=== PATIENT | female | born 1985 ===

== ENCOUNTER 2020-01-05 00:12 | Inpatient (IN) | payer OTHER ==
[2020-01-05] MEDS ORDERED: TERBUTALINE 1 MG/1 ML INJ SUB-Q PRN (01:06)
[2020-01-05] MEDS ORDERED: BUTORPHANOL 2 MG/1 ML INJ IV PRN (01:06)
[2020-01-05] MEDS ORDERED: LIDOCAINE (2%) 20 MG/1 ML VIAL 20 ML MDV INFILTRATI ONE (01:06)
[2020-01-05] MEDS ORDERED: MINERAL OIL 30 ML ORAL LIQD PO PRN (01:06)
[2020-01-05] MEDS ORDERED: TERBUTALINE 1 MG/1 ML INJ IVP PRN (01:06)
[2020-01-05] MEDS ORDERED: ePHEDrine SULFATE 50 MG/1 ML INJ IV PRN (01:06)
[2020-01-05] MEDS ORDERED: fentaNYL 100 MCG/2 ML INJ ONE (01:51)
[2020-01-05] MEDS ORDERED: fentaNYL 100 MCG/2 ML INJ IV ONE (01:52)
[2020-01-05] MEDS ORDERED: OXYTOCIN DRIP 30 UNITS/500 ML BAG IV SCH ×2 (02:00)
[2020-01-05] MEDS ORDERED: LACTATED RINGERS 1,000 ML IV SCH (02:00)
[2020-01-05] MEDS ORDERED: OXYTOCIN 20 UNIT/1000ML DRIP 20 UNITS/1,000 ML BAG IV SCH (02:00)
[2020-01-05 02:08] LABS: Hematocrit 38.6 % (30.3-42.9); Hemoglobin 13.3 gm/dl (10.1-14.3); Mean Corpuscular HGB Conc 34 % (30-34); Mean Corpuscular Volume 91 fl (79-97); Platelet Count 328 K/mm3 (140-440); Red Blood Count 4.26 M/mm3 (3.65-5.03); Red Cell Distribution Width 14.8 % (13.2-15.2)
[2020-01-05] MEDS ORDERED: WITCH HAZEL/ GLYCERIN PAD TP PRN (02:39)
[2020-01-05] MEDS ORDERED: diphenhydrAMINE 25 MG CAP PO PRN (02:39)
[2020-01-05] MEDS ORDERED: HYDROcodone/ACETAMINOPHEN 5-325 MG TAB PO PRN (02:39)
--- NOTE | 2020-01-05 02:45 | History and Physical Report ---
History of Present Illness Date of examination: 01/05/20 Date of admission: 01/05/20 00:49 Chief complaint: Intense Labor Pains History of present illness: Late entry to care at [facility], course complicated by low lying placenta (resolved), a abnormal 1hour GTT; followed by a normal 3hour GTT, and AMA, co-managed with [facility]. Past History Past Medical History: other (umbiliical hernia) Past Surgical History: no surgical history Family/Genetic History: hypertension (mother) Social history: no significant social history - Obstetrical History Expected Date of Delivery: 01/08/20 Actual Gestation: 39 Week(s) 4 Day(s) : 4 Para: 3 Hx # Term Pregnancies: 3 Number of Living Children: 3 #1 Infant Gender: Male year: 2,[birth year] Birthweight: 3.515 kg Method of Delivery: Vaginal Gestational age at delivery: 40 Complications: none #2 Gender: Male year: 2,[birth year] Birthweight: 3.459 kg Method of Delivery: Vaginal Gestational age at delivery: 40 Complications: none #3 Infant Gender: Male year: 2,009 Birthweight: 3.345 kg Method of Delivery: Vaginal Gestational age at delivery: 39 Complications: none Medications and Allergies Allergies Allergy/AdvReac Type Severity Reaction Status Date / Time No Known Allergies Allergy Unverified 01/05/20 00:49 Active Meds: Active Medications Acetaminophen/Hydrocodone Bitart (Bivalve 5/325) 2 each PO Q6H PRN PRN Reason: Pain, Moderate (4-6) Bisacodyl (Dulcolax) 10 mg NV BID PRN PRN Reason: Constipation Butorphanol Tartrate (Stadol) 2 mg IV Q2H PRN PRN Reason: Pain , Severe (7-10) Diphenhydramine HCl (Benadryl) 25 mg PO Q6H PRN PRN Reason: Itching Ephedrine Sulfate (Ephedrine Sulfate) 10 mg IV Q2M PRN PRN Reason: Hypotension Oxytocin/Sodium Chloride (Pitocin/Ns 20 Unit/1000ml Drip) 20 units in 1,000 mls @ 125 mls/hr IV DIRECT LEIGHANN Oxytocin/Sodium Chloride (Pitocin/Ns 30 Unit/500ml) 30 units in 500 mls @ 1 mls/hr IV TITR LEIGHANN; Protocol Oxytocin/Sodium Chloride (Pitocin/Ns 30 Unit/500ml) 30 units in 500 mls @ 2 mls/hr IV TITR LEIGHANN; Protocol Lactated Ringer's (Lactated Ringers) 1,000 mls @ 125 mls/hr IV DIRECT LEIGHANN Ibuprofen (Ibuprofen) 600 mg PO Q6H LEIGHANN Mineral Oil (Mineral Oil) 30 ml PO QHS PRN PRN Reason: Constipation Multivitamins/Iron/Calcium ( Vitamin) 1 each PO QDAY LEIGHANN Sodium Chloride (Sodium Chloride Flush Syringe 10 Ml) 10 ml IV PRN NR Terbutaline Sulfate (Brethine) 0.25 mg SUB-Q ONCE PRN PRN Reason: Hyperstimulation/Hypertonicity Terbutaline Sulfate (Brethine) 0.25 mg IVP ONCE PRN PRN Reason: Hyperstimulation/Hypertonicity Witch Lena/Glycerin (Tucks Pad) 1 each TP PRN PRN PRN Reason: Hemorrhoid/cleansing/soothing Review of Systems All systems: negative - Vital Signs Vital signs: Vital Signs Pulse BP 78 160/94 01/05/20 00:32 01/05/20 00:32 Temp Pulse Resp BP Pulse Ox 98.4 F 90 14 131/67 99 01/05/20 01:28 01/05/20 02:36 01/05/20 01:28 01/05/20 02:23 01/05/20 02:36 - Physical Exam Breasts: Positive: normal Cardiovascular: Regular rate Lungs: Positive: Clear to auscultation, Normal air movement Abdomen: Positive: normal appearance, soft, normal bowel sounds Genitourinary (Female): Positive: normal external genitalia, normal perenium Vagina: Positive: normal moisture Uterus: Positive: enlarged Anus/Rectum: Positive: normal perianal skin Extremities: Positive: normal - Obstetrical FHR: category 1 Uterine Contraction Monitor Mode: External Cervical Dilatation: 10 (AROM of a small amount of clear fluid at 0214) Cervical Effacement Percentage: 100 station: 0 Uterine Contraction Pattern: Regular Uterine Tone Measurement Phase: Resting Uterine Contraction Intensity: Strong/Firm Results Result Diagrams: 01/05/20 01:40 Abnormal lab results 01/05/20 Range/Units 01:40 WBC 11.6 H (4.5-11.0) K/mm3 All other labs normal. Assessment and Plan A: IUP @ 39 4/7 Weeks Category I Tracing Active Labor GBS Negative P: Admit to L&D Per Routine Orders IV Pain Control AROM Anticipate
--- NOTE | 2020-01-05 02:56 | Procedure Note ---
OB Delivery Note - Delivery Date of Delivery: 01/05/20 (0220) Surgeon: LAURA FRANCO Estimated blood loss: 200cc - Vaginal Delivery presentation: vertex Delivery position: OA Intrapartum events: none Delivery induction: none Delivery augmentation: rupture of membranes Delivery monitor: external FHT, external uterine Route of delivery: Delivery placenta: spontaneous Delivery cord: nuchal cord, 3 umbilical vessels Episiotomy: none Delivery laceration: none Anesthesia: none Delivery comments: of a live 7'15 male over a intact perineum under IV pain control with Apgars of 8 and 9 at 0220 on 01/05/2020. Nuchal cord x 1 easily manually reduced with delivery of body. directly to maternal abd/chest, skin to skin contact. Spontaneous delivery of placenta complete and intact with Hebert side presenting at 0224. Fundus is firm and midline located 4 below the U. Lochia is scant. Cord blood collected; Placenta discarded. Delayed cord clamping and cutting; Cord cut by the Father of the Baby. - A at 1 minute: 8 at 5 minutes: 9 Infant Gender: Male (7'15)
[2020-01-05] MEDS: IBUPROFEN 600 MG TAB PO SCH ×4 (04:54→23:44)
[2020-01-05] MEDS: PRENATAL VIT27-FE FUMARATE-FOLIC ACID VIT TAB PO SCH (09:12)
[2020-01-05 15:49] LABS: Hematocrit 31.2 % (30.3-42.9); Hemoglobin 11.2 gm/dl (10.1-14.3)
[2020-01-06] MEDS: IBUPROFEN 600 MG TAB PO SCH (06:00)
[2020-01-06] MEDS: PRENATAL VIT27-FE FUMARATE-FOLIC ACID VIT TAB PO SCH (09:13)
[2020-01-06 15:50] VITALS: BP 124/73
--- NOTE | 2020-01-06 16:04 | Progress Note ---
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 Delivery Procedure Note Patient reports: appetite normal, voiding normally, pain well controlled, ambulating normally, no dizzy ambulation Festus: doing well Objective - Vital Signs Latest vital signs: Vital Signs Temp Pulse Resp BP BP Pulse Ox 01/06/20 15:47 98.5 F 77 18 124/73 96 01/06/20 08:57 98.2 F 86 18 130/63 97 01/06/20 06:00 18 01/06/20 00:44 18 01/06/20 00:36 98.3 F 79 18 113/64 97 01/05/20 23:44 18 01/05/20 19:34 18 01/05/20 17:19 98.6 F 75 18 116/57 98 Intake and Output 01/06/20 01/06/20 01/06/20 07:59 15:59 23:59 Intake Total 600 1080 Balance 600 1080 Intake: Oral 240 Intake, Free Water 600 840 Other: Total, Intake Amount 120 # Voids Void 1 3 - Exam Cardiovascular: Present: Regular rate Lungs: Present: Clear to auscultation Abdomen: Present: normal appearance, soft Vulva: both: normal Uterus: Present: normal, firm, fundal height below umbilicus Extremities: Present: normal Comments: scant lochia
--- NOTE | 2020-01-06 16:05 | Discharge Summary ---
Providers - Providers Date of Admission: 01/05/20 00:49 Date of discharge: 01/06/20 Attending physician: PAMELA MYLES Primary care physician: PAMELA MYLES Hospitalization Reason for admission: active labor, IUP at term Delivery: Episiotomy: none Laceration: none Other procedures: none complications: none Discharge diagnosis: IUP at term delivered [place] baby: male Hospital course: Uncomplicated Condition at discharge: Stable Disposition: [place]-01 TO HOME OR SELFCARE - Discharge Diagnoses (1) Status post normal vaginal delivery Status: Acute (2) Single live Status: Acute Plan - Provider Discharge Summary Activity: routine, no sex for 6 weeks, no heavy lifting 4 weeks, no strenuous exercise Diet: routine Instructions: routine Additional instructions: [] Smoking cessation referral if applicable(refer to patient education folder for contact #) [] Refer to [facility] Booklet Call your doctor immediately for: * Fever > 100.5 * Heavy vaginal bleeding ( >1 pad per hour) * Severe persistent headache * Shortness of breath * Reddened, hot, painful area to leg or breast * Drainage or odor from incision. * Keep incision clean and dry at all times and follow doctor's instructions regarding bathing/showering - Follow up plan Follow up: PAMELA MYLES MD [Primary Care Provider] - 6 Weeks (Follow-up at [facility] as needed or in 6 weeks for exam) Forms: [facility] Discharge Summary
== END 2020-01-06 18:41 | disposition home or self-care (01) | DRG 807 ==
LOC: TRG 00:12 → APU 00:23 → LD 00:49 → OBSVTOIN 00:49 → TRG 00:49 → OB 04:28
PROVIDERS: ADMIT Obstetrics & Gynecology; ATTEND Obstetrics & Gynecology
PROC: 10E0XZZ Delivery of Products of Conception, External Approach (ICD-10-PCS; principal; 2020-01-05)
PROC: 10907ZC Drainage of Amniotic Fluid, Therapeutic from Products of Conception, Via Natural or Artificial Opening (ICD-10-PCS; 2020-01-05)
DX: O69.81X0 Labor and delivery complicated by cord around neck, without compression, not applicable or unspecified (principal); Z37.0 Single live birth; Z3A.39 39 weeks gestation of pregnancy
CPT/HCPCS: 36415; 85014; 85018; 85027; 86850; 86900; 86901; G0378; J2590; J3010; J7120